=== PATIENT | male | born 1985 | race Caucasian/White ===

== ENCOUNTER 2022-01-21 13:42 | Emergency (ER) | payer MEDICAID ==
[~2022-01-21] VITALS: Ht 180.3 cm; Wt 96.2 kg
--- NOTE | 2022-01-21 14:00 | NUR ---
C/O PENILE DISCHARGE/REDNESS X 1 WEEK
[2022-01-21] MEDS ORDERED: CEFTRIAXONE 1 G VIAL IM ONE (15:00)
[2022-01-21] MEDS ORDERED: AZITHROMYCIN 250 MG TABLET PO ONE (15:00)
--- NOTE | 2022-01-21 15:00 | NUR ---
at bedside for eval
[2022-01-21] MEDS ORDERED: CEFTRIAXONE 1 G VIAL ONE (15:02)
[2022-01-21] MEDS ORDERED: AZITHROMYCIN 250 MG TABLET ONE (15:03)
--- NOTE | 2022-01-21 15:20 | NUR ---
medicated as ordered
--- NOTE | 2022-01-21 15:45 | NUR ---
Patient discharged to home in stable condition. Written and verbal after care instructions given. Patient verbalizes understanding of instruction.
[2022-01-21 16:07] VITALS: BP 110/72
== END 2022-01-21 15:50 | disposition home or self-care (01) ==
LOC: ER 14:00
DX: A64 Unspecified sexually transmitted disease (principal)
CPT/HCPCS: 99283; 96372; 87491; 87591; J0696